=== PATIENT | female | born 1940 | race Caucasian/White ===

== ENCOUNTER 2022-10-30 22:16 | Observation (INO) | payer MEDICARE, OTHER ==
[2022-10-30] MEDS ORDERED: SODIUM CHLORIDE 0.9% 500 ML 500 ML IV STA (22:46)
--- NOTE | 2022-10-30 22:51 | ED ---
General Adult HPI - General Chief complaint: Syncope Stated complaint: Syncope Time Seen by Provider: 10/30/22 22:36 Source: patient, EMS, RN notes reviewed, old records reviewed Mode of arrival: EMS Limitations: no limitations - History of Present Illness Initial comments: This is a pleasant nontoxic-appearing 82-year-old female, alert and oriented, th at presents from [place] with complaints of a syncopal episode daily for the past 3 days. Patient states that when she gets up to walk she becomes dizzy and has a near syncopal episode. Usually occurs in the afternoon or early evening. States does not loose consciousness. States her daughter took her to [place] yesterday to be cared for because of her symptoms and yet it continues to happen . She states that she also lost her 2 weeks ago to a heart attack. She has had decreased appetite and has not been eating well since. She believes her symptoms are from dehydration. States that her mouth is very dry. She denies any chest pain or difficulty in breathing. No fevers. No abdominal pain. No nausea vomiting or diarrhea. No dysuria. She does have a history of COPD, is al so 1/2 pack-a-day smoker, with hypertension and hyperlipidemia. -: days(s) (3) Severity scale (1-10): 0 Associated Symptoms: loss of appetite Treatments Prior to Arrival: none - Related Data Allergies Allergy/AdvReac Type Severity Reaction Status Date / Time Fish Containing Products Allergy Swelling Verified 10/30/22 22:35 [Fish] Review of Systems ROS Statement: Those systems with pertinent positive or pertinent negative responses have been documented in the HPI. ROS Other: All systems not noted in ROS Statement are negative. Past Medical History Past Medical History: COPD, Hyperlipidemia, Hypertension, Osteoarthritis (OA), Pneumonia, Syncope Additional Past Medical History / Comment(s): iron deficiency anemia, pulmonary fibrosis, diverticulosis History of Any Multi-Drug Resistant Organisms: None Reported Past Surgical History: Back Surgery, Tonsillectomy, Tubal Ligation Past Psychological History: Anxiety, Depression Smoking Status: Current every day smoker Past Alcohol Use History: Occasional Past Drug Use History: Marijuana General Exam Limitations: no limitations General appearance: alert, in no apparent distress Head exam: Present: atraumatic, normocephalic, normal inspection Eye exam: Present: normal appearance. Absent: scleral icterus, conjunctival injection, periorbital swelling ENT exam: Present: mucous membranes dry Neck exam: Present: full ROM. Absent: tenderness, meningismus Respiratory exam: Present: normal lung sounds bilaterally. Absent: respiratory distress, accessory muscle use Cardiovascular Exam: Present: regular rate GI/Abdominal exam: Present: soft. Absent: distended, tenderness, guarding, rebound, rigid Extremities exam: Present: normal capillary refill. Absent: tenderness, pedal edema, calf tenderness Back exam: Absent: tenderness, CVA tenderness (R), CVA tenderness (L), paraspinal tenderness, vertebral tenderness, rash noted Neurological exam: Present: alert, oriented X3 Expanded Patient oriented to: Present: person, place, time Speech: Present: fluid speech Cranial nerves: EOM's Intact: Normal, Gag Reflex: Normal, Tongue Deviation: Normal Motor strength exam: RUE: 5, LUE: 5, RLE: 5, LLE: 5 Eye Response: (4) open spontaneously Motor Response: (6) obeys commands Verbal Response: (5) oriented [place] Total: 15 Psychiatric exam: Present: normal affect, normal mood Skin exam: Present: warm, dry, normal color. Absent: cyanosis, diaphoretic, petechiae, pallor Course Vital Signs 10/30/22 22:30 Temperature 98.8 F Pulse Rate 86 Respiratory 16 Rate Blood Pressure 148/83 O2 Sat by Pulse 99 Oximetry EKG Findings - EKG Results: EKG: sinus rhythm (EKG shows sinus rhythm with a ventricular rate of 89, PA interval 0.134, QRS 0.85, QTC 0.405; normal axis) Medical Decision Making - Medical Decision Making Denies any chest pain or difficulty in breathing. No fevers. No nausea vomiting or diarrhea. No abdominal pain. States last to a heart attack 3 weeks ago. He has not been eating or drinking very much. He has had a near syncopal episodes daily for the past 3 days. Is currently residing at [facility]. EKG shows sinus rhythm with a ventricular rate of 89, PA interval 0.134, QRS 0.85, QTC 0.405; normal axis. Occasional PVCs. No old ekg to compare. NO EVIDENCE OF LEUKOCYTOSIS. HEMOGLOBIN AND HEMATOCRIT ARE 9.9 AND 27.1 RE SPECTIVELY. TROPONIN -0.012. URINALYSIS SHOWS LEUKOCYTE ESTERASE WITH 14 WHITE BLOOD CELLS AND RARE BACTERIA. NO NITRITES. URINE WAS SENT FOR CULTURES PATIENT DENIES ANY DYSURIA. Chest x-ray interpreted by me shows no focal consolidation, trachea is midline, normal size. Radiologist interpretation COPD changes, no acute cardiopulmonary disease or process. Due to patient's frequent near syncopal episodes, she will be placed in observation with cardiology consult. I did discuss this case with Dr. Rowland who is agreeable. Patient is also agreeable to admission stating she needs to know why this keeps happening. Case discussed with Dr. Sanchez Patient has history of COPD, hyperlipidemia, hypertension, osteoarthritis,, pulmonary fibrosis, anxiety, depression, daily smoker Was pt. sent in by a medical professional or institution (, PA, FOOD BROKER, urgent care, hospital, or care home...) When possible be specific @ -[facility] nursing facility Did you speak to anyone other than the patient for history (EMS, parent, family, police, friend...)? What history was obtained from this source @ -No Did you review nursing and triage notes (agree or disagree)? Why? @ -I reviewed and agree with nursing and triage notes Were old charts reviewed (outside hosp., previous admission, EMS record, old EKG, old radiological studies, urgent care reports/EKG's, care home records)? Report findings @ -No old charts were reviewed Differential Diagnosis (chest pain, altered mental status, abdominal pain women, abdominal pain men, vaginal bleeding, weakness, fever, dyspnea, syncope, headache, dizziness, GI bleed, back pain, seizure, CVA, palpatations, mental health, musculoskeletal)? @ -Differential Syncope: Valvular disease, hypertrophic cardiomyopathy, pulmonary embolism, tamponade, tachycardia, bradycardia, CT, hypovolemia, hemorrhage, dissection, anemia, intracranial hemorrhage, seizure, hypoglycemia, carbon monoxide poisoning, this is not meant to be an all-inclusive list. EKG interpreted by me (3pts min.). @ -As above X-rays interpreted by me (1pt min.). @ -Yes as above CT interpreted by me (1pt min.). @ -None done U/S interpreted by me (1pt. min.). @ -None done What testing was considered but not performed or refused? (CT, X-rays, U/S, labs)? Why? @ -None What meds were considered but not given or refused? Why? @ -None Did you discuss the management of the patient with other professionals (professionals i.e. , PA, FOOD BROKER, lab, RT, psych nurse, social sciences professor, soap slabber, teacher, correction officer, case advocate)? Give summary @ -No Was smoking cessation discussed for >3mins.? @ -Yes Was critical care preformed (if so, how long)? @ -No Were there social determinants of health that impacted care today? How? (Homelessness, low income, unemployed, alcoholism, drug addiction, transportation, low edu. Level, literacy, decrease access to med. care, senior living, rehab)? @ -No Was there de-escalation of care discussed even if they declined (Discuss DNR or withdrawal of care, Hospice)? DNR status @ -No What co-morbidities impacted this encounter? (DM, HTN, Smoking, COPD, CAD, Cancer, CVA, ARF, Chemo, Hep., AIDS, mental health diagnosis, sleep apnea, morbi d obesity)? @ -Smoking, COPD, hypertension, hyperlipidemia Was patient admitted / discharged? Hospital course, mention meds given and route, prescriptions, significant lab abnormalities, going to OR and other pertinent info. @ -Admitted Undiagnosed new problem with uncertain prognosis? @ -No Drug Therapy requiring intensive monitoring for toxicity (Heparin, Nitro, Insulin, Cardizem)? @ -No Were any procedures done? @ -No Diagnosis/symptom? @ -near Syncope Acute, or Chronic, or Acute on Chronic? @ -Acute Uncomplicated (without systemic symptoms) or Complicated (systemic symptoms)? @ -Uncomplicated Side effects of treatment? @ -No Exacerbation, Progression, or Severe Exacerbation? @ -No Poses a threat to life or bodily function? How? (Chest pain, USA, CT, pneumonia, PE, COPD, DKA, ARF, appy, cholecystitis, CVA, Diverticulitis, Homicidal, Suicidal, threat to staff... and all critical care pts) @ -No - Lab Data Result diagrams: 10/30/22 22:48 10/30/22 22:48 Lab Results 10/30/22 10/30/22 10/30/22 Range/Units 22:48 22:48 22:48 WBC 7.1 (3.8-10.6) k/uL RBC 3.17 L (3.80-5.40) m/uL Hgb 9.9 L (11.4-16.0) gm/dL Hct 27.1 L (34.0-46.0) % MCV 85.6 (80.0-100.0) fL MCH 31.3 (25.0-35.0) pg MCHC 36.5 (31.0-37.0) g/dL RDW 13.6 (11.5-15.5) % Plt Count 247 (150-450) k/uL MPV 8.5 Neutrophils % 53 % Lymphocytes % 37 % Monocytes % 6 % Eosinophils % 1 % Basophils % 0 % Neutrophils # 3.8 (1.3-7.7) k/uL Lymphocytes # 2.6 (1.0-4.8) k/uL Monocytes # 0.4 (0-1.0) k/uL Eosinophils # 0.1 (0-0.7) k/uL Basophils # 0.0 (0-0.2) k/uL PT 10.2 (9.0-12.0) sec INR 1.0 (<1.2) APTT 19.9 L (22.0-30.0) sec Sodium 139 (137-145) mmol/L Potassium 4.3 (3.5-5.1) mmol/L Chloride 108 H (98-107) mmol/L Carbon Dioxide 23 (22-30) mmol/L Anion Gap 8 mmol/L BUN 21 H (7-17) mg/dL Creatinine 0.86 (0.52-1.04) mg/dL Est GFR (CKD-EPI)AfAm 74 (>60 ml/min/1.73 sqM) Est GFR (CKD-EPI)NonAf 65 (>60 ml/min/1.73 sqM) Glucose 146 H (74-99) mg/dL Calcium 9.0 (8.4-10.2) mg/dL Magnesium 1.9 (1.6-2.3) mg/dL Total Bilirubin 0.4 (0.2-1.3) mg/dL AST 27 (14-36) U/L ALT 31 (4-34) U/L Alkaline Phosphatase 101 (38-126) U/L Troponin I (0.000-0.034) ng/mL Total Protein 7.0 (6.3-8.2) g/dL Albumin 3.8 (3.5-5.0) g/dL Urine Color Urine Appearance (Clear) Urine pH (5.0-8.0) Ur Specific [place] (1.001-1.035) Urine Protein (Negative) Urine Glucose (UA) (Negative) Urine Ketones (Negative) Urine Blood (Negative) Urine Nitrite (Negative) Urine Bilirubin (Negative) Urine Urobilinogen (<2.0) mg/dL Ur Leukocyte Esterase (Negative) Urine RBC (0-5) /hpf Urine WBC (0-5) /hpf Ur Squamous Epith Cells (0-4) /hpf Urine Bacteria (None) /hpf 10/30/22 10/30/22 Range/Units 22:48 23:04 WBC (3.8-10.6) k/uL RBC (3.80-5.40) m/uL Hgb (11.4-16.0) gm/dL Hct (34.0-46.0) % MCV (80.0-100.0) fL MCH (25.0-35.0) pg MCHC (31.0-37.0) g/dL RDW (11.5-15.5) % Plt Count (150-450) k/uL MPV Neutrophils % % Lymphocytes % % Monocytes % % Eosinophils % % Basophils % % Neutrophils # (1.3-7.7) k/uL Lymphocytes # (1.0-4.8) k/uL Monocytes # (0-1.0) k/uL Eosinophils # (0-0.7) k/uL Basophils # (0-0.2) k/uL PT (9.0-12.0) sec INR (<1.2) APTT (22.0-30.0) sec Sodium (137-145) mmol/L Potassium (3.5-5.1) mmol/L Chloride (98-107) mmol/L Carbon Dioxide (22-30) mmol/L Anion Gap mmol/L BUN (7-17) mg/dL Creatinine (0.52-1.04) mg/dL Est GFR (CKD-EPI)AfAm (>60 ml/min/1.73 sqM) Est GFR (CKD-EPI)NonAf (>60 ml/min/1.73 sqM) Glucose (74-99) mg/dL Calcium (8.4-10.2) mg/dL Magnesium (1.6-2.3) mg/dL Total Bilirubin (0.2-1.3) mg/dL AST (14-36) U/L ALT (4-34) U/L Alkaline Phosphatase (38-126) U/L Troponin I <0.012 (0.000-0.034) ng/mL Total Protein (6.3-8.2) g/dL Albumin (3.5-5.0) g/dL Urine Color Light Yellow Urine Appearance Clear (Clear) Urine pH 6.0 (5.0-8.0) Ur Specific [place] 1.007 (1.001-1.035) Urine Protein Negative (Negative) Urine Glucose (UA) Negative (Negative) Urine Ketones Negative (Negative) Urine Blood Negative (Negative) Urine Nitrite Negative (Negative) Urine Bilirubin Negative (Negative) Urine Urobilinogen <2.0 (<2.0) mg/dL Ur Leukocyte Esterase Moderate H (Negative) Urine RBC <1 (0-5) /hpf Urine WBC 14 H (0-5) /hpf Ur Squamous Epith Cells 1 (0-4) /hpf Urine Bacteria Rare H (None) /hpf Disposition Clinical Impression: Syncope Disposition: ADMITTED IP TO THIS [facility] Decision Date: 10/31/22 Decision Time: 00:12
[2022-10-30 23:01] LABS: Basophils % (A) 0 %; Eosinophils # (A) 0.1 k/uL (0-0.7); Eosinophils % (A) 1 %; HCT 27.1 % (34.0-46.0); HGB 9.9 gm/dL (11.4-16.0); Lymphocytes # (A) 2.6 k/uL (1.0-4.8); Lymphocytes % (A) 37 %; MCH 31.3 pg (25.0-35.0); MCHC 36.5 g/dL (31.0-37.0); MCV 85.6 fL (80.0-100.0); Mean Platelet Volume 8.5; Monocytes # (A) 0.4 k/uL (0-1.0); Monocytes % (A) 6 %; Neutrophils # (A) 3.8 k/uL (1.3-7.7); Neutrophils % (A) 53 %; Platelet Count 247 k/uL (150-450); RBC 3.17 m/uL (3.80-5.40); RDW 13.6 % (11.5-15.5); WBC 7.1 k/uL (3.8-10.6)
--- NOTE | 2022-10-30 23:10 | XR ---
EXAMINATION TYPE: XR chest 2V DATE OF EXAM: 10/30/2022 10:56 PM COMPARISON: None TECHNIQUE: XR chest 2V Frontal and lateral views of the chest. CLINICAL INDICATION:Female, 82 years old with history of syncope; FINDINGS: Lungs/Pleura: There is flattening of the diaphragm with increased lucency of the lungs. No evidence o f pneumothorax, pleural effusion or focal consolidation. Pulmonary vascularity: Unremarkable. Heart/mediastinum: Cardiomediastinal silhouette is unremarkable. Atherosclerotic calcifications are seen in the aorta. Musculoskeletal: No acute osseous pathology. There is fixation hardware in the lower cervical spine. Other findings: None IMPRESSION: 1. No acute cardiopulmonary disease process. 2. COPD changes.
[2022-10-30 23:11] LABS: Potassium 4.3 mmol/L (3.5-5.1)
[2022-10-30 23:12] LABS: Albumin 3.8 g/dL (3.5-5.0); Magnesium 1.9 mg/dL (1.6-2.3); Total Bilirubin 0.4 mg/dL (0.2-1.3)
[2022-10-30 23:36] LABS: Prothrombin Time 10.2 sec (9.0-12.0)
[2022-10-30 23:40] LABS: Appearance,Urine Clear (Clear); Bacteria,Urine Rare /hpf; Bilirubin,Urine Negative (Negative); Blood,Urine Negative (Negative); Color,Urine Light Yellow; Glucose,Urine (UA) Negative (Negative); Ketones,Urine Negative (Negative); Leukocyte Esterase,Urine Moderate (Negative); Nitrite,Urine Negative (Negative); Protein,Urine Negative (Negative); RBC,Urine <1 /hpf (0-5); Specific Gravity,Urine 1.007 (1.001-1.035); Squamous Epithelial Cell,Urine 1 /hpf (0-4); Urobilinogen,Urine <2.0 mg/dL (<2.0); WBC,Urine 14 /hpf (0-5)
[2022-10-30 23:50] LABS: Partial Thromboplastin Time 19.9 sec (22.0-30.0)
[2022-10-31] MEDS ORDERED: ACETAMINOPHEN TAB 325 MG TAB PO PRN (00:13)
[2022-10-31] MEDS ORDERED: NALOXONE 0.4 MG/ML 1 ML VIAL IV PRN (00:13)
--- NOTE | 2022-10-31 02:21 | CT ---
EXAM: CT Angiography Chest With Intravenous Contrast CLINICAL HISTORY: ITS.REASON CT Reason: elevated dimer TECHNIQUE: Axial computed tomographic angiography images of the chest with intravenous contrast. CTDI is 8.7 mGy and DLP is 176 mGy-cm. This CT exam was performed using one or more of the following dose reduction techniques: automated exposure control, adjustment of the mA and/or kV according to patient size, and/or use of iterative reconstruction technique. MIP reconstructed images were created and reviewed. COMPARISON: No previous studies. FINDINGS: Pulmonary arteries: Peripheral branches the pulmonary arteries are unremarkable. No central pulmonary emboli. Aorta: Atherosclerotic disease of the thoracic aorta. No thoracic aortic aneurysm. Lungs: 1.9 cm indeterminate nodule left lobe of the thyroid gland. Mild to moderate COPD. The airway is normal. Scarring and subsegmental atelectasis at the lung bases. Pleural space: Unremarkable. No pneumothorax. No pleural effusions. Heart: 0.3 cm pericardial effusion. Heart is normal in size. No evidence of RV dysfunction. Bones/joints: Moderate degenerative disc disease of the thoracic spine and kyphosis. Osteopenia. Post surgical changes the lower cervical spine. No acute fracture. No dislocation. Soft tissues: Unremarkable. Lymph nodes: Unremarkable. No enlarged lymph nodes. Liver: Fatty infiltration of the liver. IMPRESSION: 1. No central or peripheral pulmonary emboli. 2. COPD. Atherosclerotic disease of the thoracic aorta.
--- NOTE | 2022-10-31 07:31 | US ---
EXAMINATION TYPE: US venous doppler duplex LE DATE OF EXAM: 10/31/2022 7:16 AM COMPARISON: NONE CLINICAL HISTORY: elevated dimer. No redness or swelling. Syncope. SIDE PERFORMED: Bilateral TECHNIQUE: The lower extremity deep venous system is examined utilizing real time linear array sonog wesley with graded compression, doppler sonography and color-flow sonography. VESSELS IMAGED: Common Femoral Vein Deep Femoral Vein Greater Saphenous Vein * Femoral Vein Popliteal Vein Small Saphenous Vein * Proximal Calf Veins (* superficial vessels) Right Leg: Negative for DVT Left Leg: Negative for DVT IMPRESSION: 1. Bilateral lower extremity ultrasound negative for deep venous thrombosis.
--- NOTE | 2022-10-31 10:52 | CA ---
Transthoracic Echo Report Name: Isidra Charles Age: 82 Gender: F : 1940 Exam Date: 10/31/2022 07:47 Exam Location: [facility] Ht (in): 61 Wt (lb): 106 Ordering Physician: Corwin Melissa Attending/Referring Phys: Departmental Secretary Mana Hernandez RDCS Procedure CPT: Indications: Syncope Cardiac Hx: Technical Quality: Fair Contrast 1: Total Dose (mL): Contrast 2: Total Dose (mL): MEASUREMENTS (Male / Female) Normal Values 2D ECHO LV Diastolic Diameter PLAX 2.8 cm 4.2 - 5.9 / 3.9 - 5.3 cm LV Systolic Diameter PLAX 1.9 cm IVS Diastolic Thickness 1.6 cm 0.6 - 1.0 / 0.6 - 0.9 cm LVPW Diastolic Thickness 1.7 cm 0.6 - 1.0 / 0.6 - 0.9 cm LV Relative Wall Thickness 1.2 RV Internal Dim ED PLAX 2.7 cm LA Volume 41.8 cm??? 18 - 58 / 22 - 52 cm??? M-MODE Aortic Root Diameter MM 3.4 cm AV Cusp Separation MM 1.6 cm DOPPLER AV Peak Velocity 140.9 cm/s AV Peak Gradient 7.9 mmHg AV Mean Velocity 108.5 cm/s AV Mean Gradient 5.0 mmHg AV Velocity Time Integral 33.5 cm LVOT Peak Velocity 133.5 cm/s LVOT Peak Gradient 7.1 mmHg LVOT Velocity Time Integral 34.2 cm MV Peak Velocity 159.3 cm/s MV Peak Gradient 10.2 mmHg MV Mean Velocity 105.0 cm/s MV Mean Gradient 4.8 mmHg MV Velocity Time Integral 30.8 cm MV Area PHT 3.1 cm??? Mitral E Point Velocity 118.2 cm/s Mitral A Point Velocity 144.2 cm/s Mitral E to A Ratio 0.8 MV Deceleration Time 248.3 ms MV E' Velocity 5.1 cm/s Mitral E to MV E' Ratio 23.1 TR Peak Velocity 301.5 cm/s TR Peak Gradient 36.4 mmHg Right Ventricular Systolic Press 40.5 mmHg FINDINGS Left Ventricle Moderately increased left ventricular wall thickness. Normal left ventricular systolic function with no obvious regional wall motion abnormalities. Left ventricular cavity size normal. Left ventricular ejection fraction is estimated at 55-60 %. Normal left ventricular diastolic filling pattern. Right Ventricle Normal right ventricular size and function. Mild pulmonary hypertension. Right ventricular systolic pressure estimated at 41mm hg. Right Atrium Normal right atrial size. Left Atrium Normal left atrial size. Mitral Valve Moderate mitral annular calcification. No mitral stenosis. Trace mitral regurgitation. Aortic Valve No aortic valve stenosis or regurgitation. Aortic valve sclerosis. Tricuspid Valve Structurally normal tricuspid valve. Mild tricuspid regurgitation. Pulmonic Valve Trace pulmonic regurgitation. Pericardium No pericardial effusion. Echo free space anterior to the right ventricle likely represents a fat pad. Aorta Normal size aortic root and proximal ascending aorta. CONCLUSIONS Normal LV size and systolic function with mild pulmonary hypertension. Mild mitral and tricuspid regurgitation. No pericardial effusion Previewed by: Dr. Blake Peterson MD (Electronically Signed) Final Date: 31 October 2022 10:51
[2022-10-31] MEDS: NICOTINE 14MG/24HR PATCH TRANSDERM SCH ×2 (10:55→10:57)
[2022-10-31] MEDS: SODIUM CHLORIDE 0.9% 1,000 ML IV SCH ×2 (10:55→20:04)
[2022-10-31] MEDS: SACUBITRIL/VALSARTAN 24 MG-26 MG TABLET PO SCH ×2 (11:13→20:03)
--- NOTE | 2022-10-31 13:18 | P.CRDCN ---
History of Present Illness Consult date: 10/31/22 Consult reason: sycope History of present illness: History of present illness: This is an 82-year-old female with past medical history of COPD, chronic bronchitis, hypertension and hyperlipidemia, tobacco use. Patient states that she does not follow with doctors. She had one visit with Dr. Gallagher in 2013 and had no follow-up visits. We have been asked to evaluate the patient for syncope. Patient states that she was playing cards and all of a sudden she passed out. She has no idea how long she had been out. Patient denies having any loss of bowel or bladder control. She has no appetite with weight loss. Poor historian. EKG sinus rhythm with PACs Chest x-ray reveals no acute cardiac problem in process CTA negative for pulmonary embolism. COPD. Atherosclerotic disease of the thoracic aorta. Venous Doppler of the lower extremity is negative for DVT. WBC 7.1, hemoglobin 9.9, platelet count 247. INR 1. D-dimer 2.93. Sodium 139, potassium 4.3, BUN 21 creatinine 0.86. Blood sugar 146. Troponin negative 1. Liver function tests are normal. Magnesium 1.9. Urinalysis leukoesterase moderate. Influenza A, influenza B, RSV and Covid 1900. Home cardiac medications: None Cardiac catheterization to thousand 14: EF 0.75, normal left system, RCA 20-30% Review Of Systems: At the time of my evaluation: Constitutional: No fever, no chills. No weakness, fatigue or lethargy. EENT: No headache. No dizziness. Lungs: No shortness of breath, cough, no sputum production. No wheezing. Cardiovascular: No chest pain, no lower extremity edema. No palpitations. No paroxysmal nocturnal dyspnea. No orthopnea. No lightheadedness or dizziness. Reports syncopal episodes. Abdominal: No abdominal pain. No nausea, vomiting. No diarrhea. No constipation. No bloody or tarry stools. Reports decreased appetite and weight loss Genitourinary: No dysuria.. No urinary retention. Musculoskeletal: No myalgias. No muscle weakness, no frequent falls. No back pain. No neck pain. Integumentary: No wounds. No rash. No unusual bruising. Neurologic: No aphasia. No facial droop. No change in mentation. No head injury. No headache. Physical examination: Gen: This is an 82-year-old female. She is resting and appears to be comfortable and in no acute distress. VS: reviewed HEENT: Head is atraumatic, normocephalic. Pupils equal, round. Sclerae is anicteric. NECK: Supple. No JVD. . LUNGS: Clear to auscultation. No wheezes or rhonchi. No intercostal retractions. HEART: Regular rate and rhythm. No murmur. ABDOMEN: Soft No tenderness. EXTREMITIES: No pedal edema. No calf tenderness. NEUROLOGICAL: Patient is awake, alert and oriented x3. Assessment: Syncopal episode of unclear etiology, possible vasovagal, rule out arrhythmia Dehydration COPD History of hypertension, hyperlipidemia Tobacco use and dependence Plan: Obtain orthostatic vital signs Continue telemetry monitoring for arrhythmias Start patient on IV fluids or 0.9 normal saline at 75 mL per hour Obtain TSH and free T4 Obtain 2-D echocardiogram and Doppler study to assess cardiac structure and function Further recommendations to follow based upon clinical course Thank you kindly for this consultation. Nurse practitioner note has been reviewed, I agree with documented findings and plan of care. Patient was seen and examined. Past Medical History Past Medical History: COPD, Hyperlipidemia, Hypertension, Osteoarthritis (OA), Pneumonia, Syncope Additional Past Medical History / Comment(s): iron deficiency anemia, pulmonary fibrosis, diverticulosis History of Any Multi-Drug Resistant Organisms: None Reported Past Surgical History: Back Surgery, Tonsillectomy, Tubal Ligation Past Psychological History: Anxiety, Depression Smoking Status: Current every day smoker Past Alcohol Use History: Occasional Past Drug Use History: Marijuana Medications and Allergies Home Medications Medication Instructions Recorded Confirmed Type Escitalopram Oxalate [Lexapro] 10 mg PO DAILY@0800 10/31/22 10/31/22 History Ibuprofen [Motrin] 800 mg PO Q8H PRN 10/31/22 10/31/22 History Nicotine 14Mg/24Hr Patch [Habitrol 1 patch TRANSDERM DAILY@00 10/31/22 10/31/22 History 14Mg/24Hr Patch] QUEtiapine [SEROquel] 25 mg PO HS@199910/31/22 10/31/22 History Sacubitril/Valsartan [Entresto 24 1 tab PO BID@08,199910/31/22 10/31/22 History mg-26 mg Tablet] Allergies Allergy/AdvReac Type Severity Reaction Status Date / Time Fish Containing Products Allergy Swelling Verified 10/31/22 06:34 [Fish] shellfish derived [Shellfish] Allergy Unknown Verified 10/31/22 06:34 Physical Exam Vitals: Vital Signs Temp Pulse Resp BP BP BP BP 10/31/22 10:08 18 118/58 129/65 133/60 10/31/22 10:00 79 18 128/67 10/31/22 08:00 10/31/22 07:28 78 18 114/62 10/31/22 06:10 98.4 F 81 18 112/59 10/30/22 22:30 98.8 F 86 16 148/83 Pulse Ox FiO2 10/31/22 10:08 97 10/31/22 10:00 98 10/31/22 08:00 97 21 10/31/22 07:28 99 10/31/22 06:10 97 10/30/22 22:30 99 Intake and Output 10/30/22 10/31/22 10/31/22 22:59 06:59 14:59 Other: Weight 48.081 kg Results 10/30/22 22:48 10/30/22 22:48 Cardiac Enzymes 10/30/22 10/30/22 Range/Units 22:48 22:48 AST 27 (14-36) U/L Troponin I <0.012 (0.000-0.034) ng/mL Coagulation 10/30/22 Range/Units 22:48 PT 10.2 (9.0-12.0) sec APTT 19.9 L (22.0-30.0) sec CBC 10/30/22 Range/Units 22:48 WBC 7.1 (3.8-10.6) k/uL RBC 3.17 L (3.80-5.40) m/uL Hgb 9.9 L (11.4-16.0) gm/dL Hct 27.1 L (34.0-46.0) % Plt Count 247 (150-450) k/uL Comprehensive Metabolic Panel 10/30/22 Range/Units 22:48 Sodium 139 (137-145) mmol/L Potassium 4.3 (3.5-5.1) mmol/L Chloride 108 H (98-107) mmol/L Carbon Dioxide 23 (22-30) mmol/L BUN 21 H (7-17) mg/dL Creatinine 0.86 (0.52-1.04) mg/dL Glucose 146 H (74-99) mg/dL Calcium 9.0 (8.4-10.2) mg/dL AST 27 (14-36) U/L ALT 31 (4-34) U/L Alkaline Phosphatase 101 (38-126) U/L Total Protein 7.0 (6.3-8.2) g/dL Albumin 3.8 (3.5-5.0) g/dL Current Medications Generic Name Dose Route Start Last Admin Trade Name Freq PRN Reason Stop Dose Admin Acetaminophen 650 mg 10/31/22 00:13 Acetaminophen Tab 325 Mg Tab PO Q6HR PRN Mild Pain or Fever > 100.5 Escitalopram Oxalate 10 mg 11/01/22 08:00 Escitalopram 10 Mg Tab PO DAILY@0800 ALEXANDRA Sodium Chloride 1,000 mls @ 75 mls/hr 10/31/22 09:30 10/31/22 10:55 Saline 0.9% IV 75 mls/hr .[id number] ALEXANDRA Administration Naloxone HCl 0.2 mg 10/31/22 00:13 Naloxone 0.4 Mg/Ml 1 Ml Vial IV Q2M PRN Opioid Reversal Nicotine 1 patch 10/31/22 09:00 10/31/22 10:57 Nicotine 14mg/24hr Patch TRANSDERM Not Given DAILY ALEXANDRA Quetiapine Fumarate 25 mg 10/31/22 20:00 Quetiapine 25 Mg Tab PO HS@2000 ALEXANDRA Sacubitril/Valsartan 1 each 10/31/22 09:00 10/31/22 11:13 Sacubitril/Valsartan 24 Mg-26 Mg Tablet PO 1 each BID ALEXANDRA Administration Intake and Output 10/30/22 10/31/22 10/31/22 22:59 06:59 14:59 Other: Weight 48.081 kg 10/30/22 22:48 10/30/22 22:48
--- NOTE | 2022-10-31 13:51 | P.HPIM ---
History of Present Illness H&P Date: 10/31/22 Chief Complaint: Syncope This is a pleasant 82-year-old female resident of [facility] with past medical history of dementia, COPD, hyperlipidemia, hypertension, osteoarthritis, pneumonia, syncope, anxiety, depression, nicotine dependence, iron deficiency anemia, pulmonary fibrosis, diverticulosis, occasional marijuana and multiple other medical issues use brought into the ER with complaints of syncope daily 3 days per ER record. Patient is a vague/poor historian, states symptoms started occurring just under a week ago and and never had prior occurrences. The first time it occurred patient states, she ""was sitting, watching TV in the evening, felt weird with some blurred vision", denied weakness and then passed out. Denies incontinence of urine or bowel. Reports her recently , she has not been sleeping, her mind is constantly racing, recently started on antidepressant. Upon patient's home medication review, noticed patient is on Entresto, patient denies that she follows with a finance executive, denies leg swelling, denies shortness of breath. Denies nausea vomiting or abdominal pain. Denies chest pain, palpitations. Denies history of coronary heart disease, [place] or cardiac stents. Afebrile, normal WBC. Hemoglobin 9.9, platelets 247, INR 1, d-dimer 2.93. Sodium 139, potassium 4.3, bicarb 23, BUN 21, creatinine 0.86, glucose 146, magnesium 1.9 , newly reporting 14 WBC's, moderate leukocytes, negative nitrates. Influenza A & B , RSV , clayton virus not detected . EKG sinus rhythm with occasional supraventricular premature complexes, chest x-ray reporting non acute, COPD changes.CTA reported negative PE, 1.9 cm indeterminate nodule left lobe of the thyroid,venous Doppler of lower extremity negative for DVT.Patient had not been seen by PCP since 2019; then in August 2022, daughter brought her in for ECF placement paperwork secondary to worsening dementia, unable to manage her checkbook, involved [employer]. Review of Systems ROS Statement: Those systems with pertinent positive or pertinent negative responses have been documented in the HPI. ROS Other: All systems not noted in ROS Statement are negative. Past Medical History Past Medical History: COPD, Hyperlipidemia, Hypertension, Osteoarthritis (OA), Pneumonia, Syncope Additional Past Medical History / Comment(s): iron deficiency anemia, pulmonary fibrosis, diverticulosis History of Any Multi-Drug Resistant Organisms: None Reported Past Surgical History: Back Surgery, Tonsillectomy, Tubal Ligation Past Psychological History: Anxiety, Depression Smoking Status: Current every day smoker Past Alcohol Use History: Occasional Past Drug Use History: Marijuana Medications and Allergies Home Medications Medication Instructions Recorded Confirmed Type Escitalopram Oxalate [Lexapro] 10 mg PO DAILY@00 10/31/22 10/31/22 History Ibuprofen [Motrin] 800 mg PO Q8H PRN 10/31/22 10/31/22 History Nicotine 14Mg/24Hr Patch [Habitrol 1 patch TRANSDERM DAILY@79910/31/22 10/31/22 History 14Mg/24Hr Patch] QUEtiapine [SEROquel] 25 mg PO HS@199910/31/22 10/31/22 History Sacubitril/Valsartan [Entresto 24 1 tab PO BID@08,199910/31/22 10/31/22 History mg-26 mg Tablet] Allergies Allergy/AdvReac Type Severity Reaction Status Date / Time Fish Containing Products Allergy Swelling Verified 10/31/22 06:34 [Fish] shellfish derived [Shellfish] Allergy Unknown Verified 10/31/22 06:34 Physical Exam Vitals: Vital Signs Temp Pulse Resp BP BP BP BP 10/31/22 10:08 18 118/58 129/65 133/60 10/31/22 10:00 79 18 128/67 10/31/22 08:00 10/31/22 07:28 78 18 114/62 10/31/22 06:10 98.4 F 81 18 112/59 10/30/22 22:30 98.8 F 86 16 148/83 Pulse Ox FiO2 10/31/22 10:08 97 10/31/22 10:00 98 10/31/22 08:00 97 21 10/31/22 07:28 99 10/31/22 06:10 97 10/30/22 22:30 99 Intake and Output 10/30/22 10/31/22 10/31/22 22:59 06:59 14:59 Other: Weight 48.081 kg PHYSICAL EXAM: VITAL SIGNS: As above GENERAL: Sitting up on stretcher, no acute distress, pleasant, cooperative,converses fluently HEENT: Conjunctivae normal. eyes normal. NECK: Supple, No JVD. No thyroid enlargement. No LNs CARDIOVASCULAR: S1, S2 regular.No murmur RESPIRATION: Breath sounds diminished in the bases. No rhonchi or crackles. No bronchial breathing. ABDOMEN: Soft, nontender . No guarding. no masses palpable. No ascites, No hepatosplenomegaly.Bowel sounds heard. LEGS: No edema. no swelling PSYCHIATRY: Alert and oriented X2, mood and affect normal. NERVOUS SYSTEM: Cranial N 2-12 grossly normal.Strength and sensation grossly intact.. Skin: Warm and dry, no rash Results CBC & Chem 7: 10/30/22 22:48 10/30/22 22:48 Labs: Abnormal Lab Results - Last 24 Hours (Table) 10/30/22 10/30/22 10/30/22 Range/Units 22:48 22:48 22:48 RBC 3.17 L (3.80-5.40) m/uL Hgb 9.9 L (11.4-16.0) gm/dL Hct 27.1 L (34.0-46.0) % APTT 19.9 L (22.0-30.0) sec D-Dimer (<0.60) mg/L FEU Chloride 108 H (98-107) mmol/L BUN 21 H (7-17) mg/dL Glucose 146 H (74-99) mg/dL Ur Leukocyte Esterase (Negative) Urine WBC (0-5) /hpf Urine Bacteria (None) /hpf 10/30/22 10/30/22 Range/Units 22:48 23:04 RBC (3.80-5.40) m/uL Hgb (11.4-16.0) gm/dL Hct (34.0-46.0) % APTT (22.0-30.0) sec D-Dimer 2.93 H (<0.60) mg/L FEU Chloride (98-107) mmol/L BUN (7-17) mg/dL Glucose (74-99) mg/dL Ur Leukocyte Esterase Moderate H (Negative) Urine WBC 14 H (0-5) /hpf Urine Bacteria Rare H (None) /hpf Assessment and Plan Assessment: Syncope, etiology unclear, possibly medication induced in a patient recently placed on Entresto, reporting decreased water intake, possibly secondary to hypotension. [employer] liaison notified-researching Entresto further. Echo pending. Dehydration COPD 1.9 cm indeterminate nodule left lobe of the thyroid, incidental finding per CTA Hypertension Hyperlipidemia Osteoarthritis History of iron deficiency anemia Nicotine dependence Pulmonary fibrosis Diverticulosis Anxiety Depression Plan: Continue on current medication regime ,monitoring and symptomatic treatment. Maintain gentle IV fluid hydration. Echo pending. TSH/T4 pending . cardiology consult in place,rec. pending.Entresto recently prescibed-researching further. The impression and plan of care has been dictated as directed. : I performed a history and examination of this patient, discussed the same with the dictator. I agree with the dictator's note ,documented as a scribe. Any additional findings or plans will be noted.
[2022-10-31] MEDS ORDERED: QUEtiapine 25 MG TAB PO SCH (20:00)
[2022-11-01 06:53] VITALS: RESP 16
[2022-11-01] MEDS ORDERED: NICOTINE 14MG/24HR PATCH TRANSDERM SCH (08:00)
[2022-11-01] MEDS ORDERED: ESCITALOPRAM 10 MG TAB PO SCH (08:00)
[2022-11-01] MEDS: NICOTINE 14MG/24HR PATCH TRANSDERM SCH (08:57)
--- NOTE | 2022-11-01 10:23 | P.PN ---
Subjective Progress Note Date: 11/01/22 History of present illness: This is an 82-year-old female with past medical history of COPD, chronic bronc hitis, hypertension and hyperlipidemia, tobacco use. Patient states that she does not follow with doctors. She had one visit with Dr. Gallagher in 2013 and had no follow-up visits. We have been asked to evaluate the patient for syncope. Patient states that she was playing cards and all of a sudden she passed out. She has no idea how long she had been out. Patient denies having any loss of bowel or bladder control. She has no appetite with weight loss. Poor historian. EKG sinus rhythm with PACs Chest x-ray reveals no acute cardiac problem in process CTA negative for pulmonary embolism. COPD. Atherosclerotic disease of the thoracic aorta. Venous Doppler of the lower extremity is negative for DVT. WBC 7.1, hemoglobin 9.9, platelet count 247. INR 1. D-dimer 2.93. Sodium 139, potassium 4.3, BUN 21 creatinine 0.86. Blood sugar 146. Troponin negative 1. Liver function tests are normal. Magnesium 1.9. Urinalysis leukoesterase moderate. Influenza A, influenza B, RSV and Covid 1900. Home cardiac medications: None Cardiac catheterization to thousand 14: EF 0.75, normal left system, RCA 20-30% 4/4 The patient is seen today in follow-up. She's had no further episodes of sy ncope and overnight was uneventful. Heart rate is in the 70s to 80s, blood pressure 122/52. No arrhythmias were noted on telemetry. Orthostatic vital signs were negative. TSH 0.069. And free T4 normal at 1.01. Echocardiogram reveals normal LV size and systolic function with mild pulmonary hypertension. Mild mitral and tricuspid regurgitation. No pericardial effusion. Physical examination: Gen: This is an 82-year-old female. She is resting and appears to be comfortable and in no acute distress. VS: reviewed HEENT: Head is atraumatic, normocephalic. Pupils equal, round. Sclerae is anicteric. NECK: Supple. No JVD. . LUNGS: Clear to auscultation. No wheezes or rhonchi. No intercostal retractions. HEART: Regular rate and rhythm. No murmur. ABDOMEN: Soft No tenderness. EXTREMITIES: No pedal edema. NEUROLOGICAL: Patient is awake, alert and oriented x3. Assessment: Syncopal episode of unclear etiology, possible vasovagal, rule out arrhythmia Dehydration COPD History of hypertension, hyperlipidemia Tobacco use and dependence Plan: Entresto will be discontinued as patient has no systolic heart failure, start patient on losartan 50 mg tomorrow evening. Patient will need to return on or Monday of this week to have event monitor placed: 2 week event monitor for Dr. SARMAD Peterson Patient is cleared for discharge and a follow-up with Dr. SARMAD Peterson in 3 weeks. Nurse practitioner note has been reviewed, I agree with documented findings and plan of care. Patient was seen and examined. Objective - Vital Signs Vital signs: Vital Signs Temp 97.4 F L 11/01/22 06:52 Pulse 79 11/01/22 06:52 Resp 16 11/01/22 06:52 BP 122/52 11/01/22 06:52 Pulse Ox 98 11/01/22 08:05 FiO2 21 11/01/22 08:05 Intake & Output 10/31/22 11/01/22 11/01/22 18:59 06:59 18:59 Intake Total 240 Balance 240 Intake: Oral 240 Other: # Voids 1 2 - Labs CBC & Chem 7: 10/30/22 22:48 10/30/22 22:48 Labs: Abnormal Lab Results - Last 24 Hours (Table) 10/31/22 Range/Units 11:06 TSH 0.069 L (0.350-5.500) uIU/mL Microbiology - Last 24 Hours (Table) 10/30/22 23:04 Urine Culture - Preliminary Urine,Voided
--- NOTE | 2022-11-01 10:41 | P.DS ---
Providers Date of admission: 10/31/22 00:07 Expected date of discharge: 11/01/22 Attending physician: Daryl Jacobs MD Consults: 10/31/22 00:13 Consult Physician Routine Consulting Provider: Rudy Holbrook Consult Reason/Comments: syncope recurrent Do you want consulting provider notified?: Yes, Notify in am 10/31/22 18:14 Consult Physician Routine Consulting Provider: Anahy Ferraro Consult Reason/Comments: syncope Do you want consulting provider notified?: Yes Primary care physician: Fernanda Rios [facility] Course: Final Diagnoses: Syncope, etiology unclear, suspect medication induced in a patient recently placed on Entresto, reporting decreased water intake, suspect secondary to hypotension. Entresto discontinued. Echo reporting normal LV function with mild pulmonary hypertension. Dehydration, improved COPD, stable 1.9 cm indeterminate nodule left lobe of the thyroid, incidental finding per CTA, TSH 0.069/free T4 1.010, follow-up with ENT outpatient. Hypertension Hyperlipidemia Osteoarthritis History of iron deficiency anemia Nicotine dependence Pulmonary fibrosis Diverticulosis Anxiety Depression Hospital course:This is a pleasant 82-year-old female resident of [facility] with past medical history of dementia, COPD, hyperlipidemia, hypertension, osteoarthritis, pneumonia, syncope, anxiety, depression, nicotine dependence, iron deficiency anemia, pulmonary fibrosis, diverticulosis, occasional marijuana and multiple other medical issues use brought into the ER with complaints of syncope daily 3 days per ER record. Patient is a vague/poor historian, states symptoms started occurring just under a week ago and and never had prior occurrences. The first time it occurred patient states, she ""was sitting, watching TV in the evening, felt weird with some blurred vision", denied weakness and then passed out. Denies incontinence of urine or bowel. Reports her recently , she has not been sleeping, her mind is rehana daniel, recently started on antidepressant. Upon patient's home medication review, noticed patient is on Entresto, patient denies that she follows with a adult education manager, denies leg swelling, denies shortness of breath. Denies nausea vomiting or abdominal pain. Denies chest pain, palpitations. Denies history of coronary heart disease, [place] or cardiac stents. Afebrile, normal WBC. Hemoglobin 9.9, platelets 247, INR 1, d-dimer 2.93. Sodium 139, potassium 4.3, bicarb 23, BUN 21, creatinine 0.86, glucose 146, magnesium 1.9 , newly reporting 14 WBC's, moderate leukocytes, negative nitrates. Influenza A & B , RSV , clayton virus not detected . EKG sinus rhythm with occasional supraventricular premature complexes, chest x-ray reporting non acute, COPD changes.CTA reported negative PE, 1.9 cm indeterminate nodule left lobe of the thyroid,venous Doppler of lower extremity negative for DVT.Patient had not been seen by PCP since 2019; then in August 2022, daughter brought her in for ECF placement paperwork secondary to worsening dementia, unable to manage her checkbook, involved [employer]. Entresto Discontinued. Maintained on gentle IV fluid hydration. Echo reporting normal LV size and systolic function with mild pulmonary hypertension, mild mitral and tricuspid regurgitation, no pericardial effusion. TSH 0.069/free T4 1.010-in addition to incidental finding of 1.9 cm indeterminate nodule left lobe of the thyroid, follow-up with ENT outpatient. Evaluated by cardiology, recommending no Entresto; losartan for hypertension initiated, starting tomorrow for 11/02/22. Significant clinical improvement. Reports she is feeling so much better .Denies chest pain, palpitations or shortness of breath. Denies cough or congestion. Denies lightheadedness dizziness or focal deficits. Denies blurred vision. Denies headache. Reports she is ambulating, tolerating exertion well. Cleared by cardiology for discharge. Patient will be discharged to [facility] today in a stable condition with guarded prognosis. The impression and plan of care has been dictated as directed. : I performed a history and examination of this patient, discussed the same with the dictator. I agree with the dictator's note ,documented as a scribe. Any additional findings or plans will be noted. Patient Condition at Discharge: Stable Plan - Discharge Summary New Discharge Prescriptions: New Losartan [Cozaar] 50 mg PO HS #0 tab Continue Ibuprofen [Motrin] 800 mg PO Q8H PRN PRN Reason: Pain QUEtiapine [SEROquel] 25 mg PO HS@1999 Nicotine 14Mg/24Hr Patch [Habitrol] 1 patch TRANSDERM DAILY@0800 Escitalopram Oxalate [Lexapro] 10 mg PO DAILY@0800 Discontinued Sacubitril/Valsartan [Entresto 24 mg-26 mg Tablet] 1 tab PO BID@ Discharge Medication List Escitalopram Oxalate [Lexapro] 10 mg PO DAILY@79910/31/22 [History] Ibuprofen [Motrin] 800 mg PO Q8H PRN 10/31/22 [History] Nicotine 14Mg/24Hr Patch [Habitrol] 1 patch TRANSDERM DAILY@79910/31/22 [History] QUEtiapine [SEROquel] 25 mg PO HS@199910/31/22 [History] Losartan [Cozaar] 50 mg PO HS #0 tab 11/01/22 [Rx] Follow up Appointment(s)/Referral(s): Leigh Quiros DO [REFERRING] - 1-2 days Activity/Diet/Wound Care/Special Instructions: * Start Losartan Monday11/02/22
--- NOTE | 2022-11-01 11:18 | P.CNNES ---
History of Present Illness Consult date: 11/01/22 Requesting physician: Christine Joyce Reason for Consult: Syncope History of Present Illness: Patient is a 82-year-old right-handed female came to the hospital by ambulance on 10/30/2022 at 10:16 PM for recurrent syncopal spells. Patient has been drinking half a pint of tequila every day for 6-7 years. Her 3 weeks ago, and she stopped drinking alcohol. Says that she had about 6 episodes of syncopal spells. Mostly it has happened when she is sitting, watching TV, but it can also happen standing but has never happened when laying down. She usually gets a feeling of episode coming with feeling generalized weak, woozy, dizzy, and the symptoms last for a few seconds and then she passes out. If she is sitting and gets the feeling, she keel over the couch to prevent a fall. If she gets that feeding while standing, she sits down to prevent a fall. She has never bitten her tongue or loss control of urine. She believes that she is out for about 2 or 3 minutes. When she wakes up, she is fully oriented and normal. No postictal state. Patient denies any history of seizure. As per EMS flow sheet, when they arrived, nursing staff mentioned that patient appeared to have a seizure in the assisted her to the floor. Nurses could not describe her seizure like activity and states it lasted 3-4 minutes at least. Patient was alert and oriented 3 when EMS arrived. Patient stated she did not have a seizure. Patient mentioned that she was playing cards and was feeling overwhelmed as she is a new resident here and she has been stressed due to recent of her . Patient mentioned that she felt lightheaded and felt as if she was going to pass out, but states she did not pass out. Patient mentioned that her hands feels cramping. Patient denied any pain or difficulty breathing. Patient vitals at the scene was blood pressure 142/68, pulse rate 98, respirations 16 saturation 100% and blood sugar 222. Blood test shows normal WBC hemoglobin 9.9, platelets 247. PT/PTT normal, d- dimer elevated 2.93. Chem-20 is normal. Troponin is negative. TSH is decreased 0.069 with normal free T4 of 1.010. UA shows moderate leukocyte esterase. 14 WBC. Influenza, RSV and coronal virus PCR negative. EKG showed sinus rhythm with occasional supraventricular premature complexes. Chest x-ray showed no acute process. COPD changes. CTA of the chest showed no emboli. COPD. Atherosclerotic disease of the thoracic aorta. Venous Doppler of the lower extremities was negative for DVT. Patient has history of smoking 1 pack per day since age 18. She has been drinking alcohol half pint tequila every day for 6-7 years, quit 3 weeks ago after her . Denies any history of head injury. No history of seizures. She does smoke marijuana every day. No other drug use. Review of Systems Constitutional: Reports weight loss, Denies chills, Denies fever Eyes: denies blurred vision, denies pain Ears: deny: decreased hearing, ear discharge Ears, nose, mouth and throat: Denies headache, Denies sore throat Cardiovascular: Reports lightheadedness, Reports syncope, Denies chest pain, Denies shortness of breath Respiratory: Denies cough, Denies excessive sputum Gastrointestinal: Denies abdominal pain, Denies diarrhea, Denies nausea, Denies vomiting Genitourinary: Denies dysuria, Denies hematuria Musculoskeletal: Reports low back pain, Denies myalgias, Denies neck pain Integumentary: Denies pruritus, Denies rash Neurological: Reports as per HPI Psychiatric: Reports depression, Denies anxiety Endocrine: Reports weight change, Denies fatigue Past Medical History Past Medical History: COPD, Hyperlipidemia, Hypertension, Osteoarthritis (OA), Pneumonia, Syncope Additional Past Medical History / Comment(s): iron deficiency anemia, pulmonary fibrosis, diverticulosis History of Any Multi-Drug Resistant Organisms: None Reported Past Surgical History: Back Surgery, Tonsillectomy, Tubal Ligation Past Psychological History: Anxiety, Depression Smoking Status: Current every day smoker Past Alcohol Use History: Occasional Past Drug Use History: Marijuana Medications and Allergies Home Medications Medication Instructions Recorded Confirmed Type Escitalopram Oxalate [Lexapro] 10 mg PO DAILY@79910/31/22 10/31/22 History Ibuprofen [Motrin] 800 mg PO Q8H PRN 10/31/22 10/31/22 History Nicotine 14Mg/24Hr Patch [Habitrol] 1 patch TRANSDERM DAILY@79910/31/22 10/31/22 History QUEtiapine [SEROquel] 25 mg PO HS@199910/31/22 10/31/22 History Losartan [Cozaar] 50 mg PO HS #0 tab 11/01/22 Rx Allergies Allergy/AdvReac Type Severity Reaction Status Date / Time Fish Containing Products Allergy Swelling Verified 10/31/22 06:34 [Fish] shellfish derived [Shellfish] Allergy Unknown Verified 10/31/22 06:34 Physical Examination - Vital Signs Vital Signs: Vital Signs Temp Pulse Pulse Resp BP BP BP 11/01/22 08:05 11/01/22 06:52 97.4 F L 79 16 122/52 11/01/22 02:27 98.4 F 75 18 119/63 10/31/22 20:00 91 10/31/22 19:18 97.9 F 83 17 125/63 10/31/22 15:00 98 F 91 16 157/80 10/31/22 13:41 98 F 89 20 138/63 Pulse Ox FiO2 11/01/22 08:05 98 21 11/01/22 06:52 98 11/01/22 02:27 96 10/31/22 20:00 10/31/22 19:18 98 10/31/22 15:00 98 10/31/22 13:41 98 Intake and Output 10/31/22 11/01/22 11/01/22 22:59 06:59 14:59 Intake Total 240 Balance 240 Intake: Oral 240 Other: # Voids 2 2 Patient is an elderly female, very pleasant in no acute distress. Patient is alert awake oriented to time place and person. Speech and language functions are normal. Patient can name and repeat very well. No aphasia or dysarthria. Attention, concentration and fund of knowledge is adequate. On cranial nerve examination, pupils are equal, round and reacting to light, visual weir are full on confrontation, with no neglect on double simultaneous stimulation. Extraocular muscles are intact with no nystagmus. Face is symmetric, tongue protrudes to the midline. Palatal elevation and sensation normal, hearing and shoulder shrug normal, facial sensation normal. On muscle strength testing, there is no pronator drift and the strength is normal in arms and legs distally and proximally. Deep tendon reflexes are symmetric 1+ in the upper limbs, trace to 1 in the lower limbs and plantars are downgoing bilaterally. Sensory to touch is equal with no neglect on double simultaneous stimulation. Cerebellar function showed no ataxia for [id number] testing. No dysdiadochokinesia. No ataxia for [id number] testing on either side. Tone and bulk of muscles normal. Gait deferred.. On general examination, there is no carotid bruit heard on either side, no heart murmur, S1-S2 audible. Chest is clear on consultation. Abdomen is soft nontender. No organomegaly, bowel sounds present. Peripheral pulses are present. No edema. Results - Laboratory Findings CBC and BMP: 10/30/22 22:48 10/30/22 22:48 Abnormal Lab Findings: Abnormal Labs 10/30/22 10/30/22 10/30/22 22:48 22:48 22:48 RBC 3.17 L Hgb 9.9 L Hct 27.1 L APTT 19.9 L D-Dimer Chloride 108 H BUN 21 H Glucose 146 H TSH Ur Leukocyte Esterase Urine WBC Urine Bacteria 10/30/22 10/30/22 10/31/22 22:48 23:04 11:06 RBC Hgb Hct APTT D-Dimer 2.93 H Chloride BUN Glucose TSH 0.069 L Ur Leukocyte Esterase Moderate H Urine WBC 14 H Urine Bacteria Rare H Assessment and Plan Assessment: * Syncopal spells, recurrent, perhaps related to stopping alcohol use 3 weeks ago. Rule out arrhythmia. Orthostatics negative. * Tobacco use * Marijuana use Plan: * Orthostatics were checked, and apparently was negative. Patient admits that she does not drink fluid enough. She was recommended to increase fluid intake. * Check EEG to rule out any epileptiform activity. * Cardiology has seen the patient, recommending event monitor for 2 weeks. Agree with event monitoring. * 2-D echo revealed normal left ventricular size and systolic function with mild pulmonary hypertension. EF is 55-60%. Left atrial size is normal. * Patient states she does not drive. She was recommended no climbing ladders, operating dangerous machinery or swimming. * Recommend abstain from alcohol use and recommended tobacco cessation. * Thank you for the consult. Addendum: EEG was normal. No epileptiform activity seen. Clear for discharge.
[2022-11-01 14:51] VITALS: BP 155/62; PULSE 93; TEMP 97.8
--- NOTE | 2022-11-01 20:39 | EEG ---
ELECTROENCEPHALOGRAM REPORT PREAMBLE: This is an 82-year-old female with recurrent syncopal spells. EEG FINDINGS: This is a 21-channel digital EEG recorded with video component, utilizing 10/20 international system with referential and bipolar montages. Background consists of well developed, well regulated moderate voltage activity in 9 hertz alpha. Background is posterior dominant and reactive to eye opening and closing. Photic driving response was not seen. Some drowsiness was seen with intermittent bilaterally symmetric theta frequency rhythm. Deeper stages of sleep were not seen. No focal or generalized epileptiform activity was seen. IMPRESSION: This is a normal awake and drowsy EEG. No focal, lateralized, or epileptiform activity was seen. MMODL / IJN: [id number] /
[2022-11-02] MEDS ORDERED: LOSARTAN 50 MG TAB PO SCH (21:00)
== END 2022-11-01 17:16 ==
LOC: EC 22:16 → 6NMEDSUR 10-31 00:07
PROVIDERS: ADMIT Family Medicine; ATTEND Family Medicine
DX: R55 Syncope and collapse (principal); E86.0 Dehydration; F17.210 Nicotine dependence, cigarettes, uncomplicated; I10 Essential (primary) hypertension; E78.5 Hyperlipidemia, unspecified; R63.0 Anorexia; F32.A Depression, unspecified; F41.9 Anxiety disorder, unspecified; J42 Unspecified chronic bronchitis; M19.90 Unspecified osteoarthritis, unspecified site; F10.10 Alcohol abuse, uncomplicated; Z87.01 Personal history of pneumonia (recurrent); D50.9 Iron deficiency anemia, unspecified; J84.10 Pulmonary fibrosis, unspecified; Z87.19 Personal history of other diseases of the digestive system; Z98.51 Tubal ligation status; Z98.890 Other specified postprocedural states; Z79.899 Other long term (current) drug therapy; Z91.013 Allergy to seafood
CPT/HCPCS: 96360; 96361 ×2; 99285; 36415; 94760 ×2; 95816; 93005; 93306; 97161; 97166; 85379; 84439; 80053; 84443; 83735; 84484; 85025; 85610; 85730; 81001; 87086; 87636; 71046; 93970; 71275; G0378 ×2; S4990; Q9967

== ENCOUNTER 2023-01-29 04:55 | Emergency (ER) | payer MEDICARE, OTHER ==
--- NOTE | 2023-01-29 04:59 | ED ---
GI Bleed HPI - General Stated complaint: Rectal Bleed Time Seen by Provider: 01/29/23 04:59 Source: RN notes reviewed, old records reviewed Limitations: no limitations - History of Present Illness Initial comments: This is a 82-year-old female to the emergency department today. Patient is presenting today for evaluation of bloody bowel movement. Patient 1 bowel movement today that was all blood prompting her visit to the emergency department. No nausea no vomiting no other complaints patient did have some episodic abdominal pain prior to having bloody bowel movement. MD complaint: blood on toilet paper, blood streaked stool, gross hematochezia -: unknown Radiation: none Quality: painless Consistency: constant Improves with: none Worsens with: none Context: history of GI bleed Associated Symptoms: denies other symptoms - Related Data Home Medications Medication Instructions Recorded Confirmed Escitalopram Oxalate [Lexapro] 10 mg PO DAILY@0800 10/31/22 10/31/22 Ibuprofen [Motrin] 800 mg PO Q8H PRN 10/31/22 10/31/22 Nicotine 14Mg/24Hr Patch [Habitrol] 1 patch TRANSDERM DAILY@0810/31/22 10/31/22 QUEtiapine [SEROquel] 25 mg PO HS@199910/31/22 10/31/22 Previous Rx's Medication Instructions Recorded Losartan [Cozaar] 50 mg PO HS #0 tab 11/01/22 Allergies Allergy/AdvReac Type Severity Reaction Status Date / Time Fish Containing Products Allergy Swelling Verified 10/31/22 06:34 [Fish] shellfish derived [Shellfish] Allergy Unknown Verified 10/31/22 06:34 Review of Systems ROS Statement: Those systems with pertinent positive or pertinent negative responses have been documented in the HPI. ROS Other: All systems not noted in ROS Statement are negative. Past Medical History Past Medical History: COPD, Hyperlipidemia, Hypertension, Osteoarthritis (OA), Pneumonia, Syncope Additional Past Medical History / Comment(s): iron deficiency anemia, pulmonary fibrosis, diverticulosis History of Any Multi-Drug Resistant Organisms: None Reported Past Surgical History: Back Surgery, Tonsillectomy, Tubal Ligation Past Psychological History: Anxiety, Depression Smoking Status: Current every day smoker Past Alcohol Use History: Occasional Past Drug Use History: Marijuana General Exam General appearance: alert, in no apparent distress Head exam: Present: atraumatic, normocephalic, normal inspection Eye exam: Present: normal appearance, PERRL, EOMI. Absent: scleral icterus, conjunctival injection, periorbital swelling ENT exam: Present: normal exam, mucous membranes moist Neck exam: Present: normal inspection. Absent: tenderness, meningismus, lymphadenopathy Respiratory exam: Present: normal lung sounds bilaterally. Absent: respiratory distress, wheezes, rales, rhonchi, stridor Cardiovascular Exam: Present: normal rhythm, tachycardia, normal heart sounds. Absent: systolic murmur, diastolic murmur, rubs, gallop, clicks GI/Abdominal exam: Present: soft, normal bowel sounds. Absent: distended, tenderness, guarding, rebound, rigid Extremities exam: Present: normal inspection, full ROM, normal capillary refill. Absent: tenderness, pedal edema, joint swelling, calf tenderness Back exam: Present: normal inspection Neurological exam: Present: alert, oriented X3, CN II-XII intact Psychiatric exam: Present: normal affect, normal mood Skin exam: Present: warm, dry, intact, normal color. Absent: rash Course Vital Signs 01/29/23 01/29/23 01/29/23 05:00 07:44 07:45 Temperature 98.6 F 97.6 F 97.6 F Pulse Rate 95 107 H 107 H Respiratory 16 18 18 Rate Blood Pressure 155/73 123/69 123/69 O2 Sat by Pulse 98 96 96 Oximetry - Reevaluation(s) Reevaluation #1: 01/29/23 06:28 Medical record is reviewed Reevaluation #2: 01/29/23 06:28 No active bloody bowel movements here in the ER Reevaluation #3: Patient informed results and questions answered Reevaluation #4: 01/29/23 05:19 Was pt. sent in by a medical professional or institution? @ -no Did you speak to anyone other than the patient for history? @ -no Did you review nursing and triage notes? @ -agree Were old charts reviewed? @ -yes Differential Diagnosis? @ -prior EKG interpreted by me (3pts min.)? @ -no X-rays interpreted by me (1pt min.)? @ -no CT interpreted by me (1pt min.)? @ -no U/S interpreted by me (1pt. min.)? @ -no What testing was considered but not performed? (CT, X-rays, U/S, labs)? Why? @ -no What meds were considered but not given? Why? @ -no Did you discuss the management of the patient with other professionals? @ -no Did you reconcile home meds? @ -no Was smoking cessation discussed for >3mins.? @ -no Was critical care preformed (if so, how long)? @ -no Were there social determinants of health that impacted care today? How? (Homelessness, low income, unemployed, alcoholism, drug addiction, transportation, low edu. Level, literacy, decrease access to med. care, [facility]ci, rehab)? @ -no Was there de-escalation of care discussed even if they declined? (Discuss DNR or withdrawal of care, Hospice)? @ -no What co-morbidities impacted this encounter? (DM, HTN, Smoking, COPD, CAD, Cancer, CVA, Hep., AIDS, mental health diagnosis, sleep apnea, morbid obesity)? @ -none Was patient admitted / discharged? @ -82 female to the emergency department with bright red blood per rectum. One bloody bowel movement prior to arrival patient thinks it was all blood, patient's hemoglobin is higher than normal at 9.7. Patient has no blood output here in the ER 5 hours Patient will be discharged Discharge Undiagnosed new problem with uncertain prognosis? @ -no Drug Therapy requiring intensive monitoring for toxicity (Heparin, Nitro, Insulin, Cardizem)? @ -no Were any procedures done? @ -no Diagnosis/symptom? @ -GI bleed, abdominal pain Acute, or Chronic, or Acute on Chronic? @ -acute Uncomplicated (without systemic symptoms) or Complicated (systemic symptoms)? @ -complicated Side effects of treatment? @ -no Exacerbation, Progression, or Severe Exacerbation] @ -no Poses a threat to life or bodily function? @ -yes1 Medical Decision Making - Medical Decision Making 82 female to the emergency department with bright red blood per rectum. One bl oody bowel movement prior to arrival patient thinks it was all blood, patient's hemoglobin is higher than normal at 9.7. Patient has no blood output here in the ER 5 hours Patient will be discharged - Lab Data Result diagrams: 01/29/23 05:47 01/29/23 05:47 Lab Results 01/29/23 01/29/23 01/29/23 Range/Units 05:47 05:47 05:47 WBC 10.5 (3.8-10.6) k/uL RBC 3.71 L (3.80-5.40) m/uL Hgb 9.6 L (11.4-16.0) gm/dL Hct 30.3 L (34.0-46.0) % MCV 81.6 (80.0-100.0) fL MCH 25.8 (25.0-35.0) pg MCHC 31.6 (31.0-37.0) g/dL RDW 22.8 H (11.5-15.5) % Plt Count 315 (150-450) k/uL MPV 8.5 Neutrophils % 80 % Lymphocytes % 12 % Monocytes % 6 % Eosinophils % 1 % Basophils % 0 % Neutrophils # 8.4 H (1.3-7.7) k/uL Lymphocytes # 1.2 (1.0-4.8) k/uL Monocytes # 0.6 (0-1.0) k/uL Eosinophils # 0.1 (0-0.7) k/uL Basophils # 0.0 (0-0.2) k/uL Hypochromasia Marked Anisocytosis Moderate Microcytosis Slight PT 10.4 (9.0-12.0) sec INR 1.0 (<1.2) APTT 22.7 (22.0-30.0) sec Sodium 136 L (137-145) mmol/L Potassium 4.7 (3.5-5.1) mmol/L Chloride 105 (98-107) mmol/L Carbon Dioxide 25 (22-30) mmol/L Anion Gap 6 mmol/L BUN 18 H (7-17) mg/dL Creatinine 0.82 (0.52-1.04) mg/dL Est GFR (CKD-EPI)AfAm 78 (>60 ml/min/1.73 sqM) Est GFR (CKD-EPI)NonAf 68 (>60 ml/min/1.73 sqM) Glucose 139 H (74-99) mg/dL Calcium 9.0 (8.4-10.2) mg/dL Magnesium 1.7 (1.6-2.3) mg/dL Total Bilirubin 0.3 (0.2-1.3) mg/dL AST 31 (14-36) U/L ALT 33 (4-34) U/L Alkaline Phosphatase 129 H (38-126) U/L Troponin I (0.000-0.034) ng/mL Total Protein 6.9 (6.3-8.2) g/dL Albumin 3.7 (3.5-5.0) g/dL Blood Type Blood Type Confirm Blood Type Recheck Bld Type Recheck Status Antibody Screen Spec Expiration Date 01/29/23 01/29/23 01/29/23 Range/Units 05:47 05:47 06:31 WBC (3.8-10.6) k/uL RBC (3.80-5.40) m/uL Hgb (11.4-16.0) gm/dL Hct (34.0-46.0) % MCV (80.0-100.0) fL MCH (25.0-35.0) pg MCHC (31.0-37.0) g/dL RDW (11.5-15.5) % Plt Count (150-450) k/uL MPV Neutrophils % % Lymphocytes % % Monocytes % % Eosinophils % % Basophils % % Neutrophils # (1.3-7.7) k/uL Lymphocytes # (1.0-4.8) k/uL Monocytes # (0-1.0) k/uL Eosinophils # (0-0.7) k/uL Basophils # (0-0.2) k/uL Hypochromasia Anisocytosis Microcytosis PT (9.0-12.0) sec INR (<1.2) APTT (22.0-30.0) sec Sodium (137-145) mmol/L Potassium (3.5-5.1) mmol/L Chloride (98-107) mmol/L Carbon Dioxide (22-30) mmol/L Anion Gap mmol/L BUN (7-17) mg/dL Creatinine (0.52-1.04) mg/dL Est GFR (CKD-EPI)AfAm (>60 ml/min/1.73 sqM) Est GFR (CKD-EPI)NonAf (>60 ml/min/1.73 sqM) Glucose (74-99) mg/dL Calcium (8.4-10.2) mg/dL Magnesium (1.6-2.3) mg/dL Total Bilirubin (0.2-1.3) mg/dL AST (14-36) U/L ALT (4-34) U/L Alkaline Phosphatase (38-126) U/L Troponin I <0.012 (0.000-0.034) ng/mL Total Protein (6.3-8.2) g/dL Albumin (3.5-5.0) g/dL Blood Type O Positive Blood Type Confirm O Positive Blood Type Recheck No Previous Record Bld Type Recheck Status CABO Indicated Antibody Screen NEGATIVE Spec Expiration Date 02/01/20232346 Disposition Clinical Impression: Lower gastrointestinal hemorrhage, Abdominal pain Disposition: HOME SELF-CARE Condition: Fair Instructions (If sedation given, give patient instructions): Gastrointestinal Bleeding (ED) Is patient prescribed a controlled substance at d/c from ED?: No Referrals: Fernanda Rios DO [Primary Care Provider] - 1-2 days Time of Disposition: 07:00
[2023-01-29] MEDS ORDERED: SODIUM CHLORIDE 0.9% 500 ML 500 ML IV STA (05:10)
[2023-01-29 06:14] LABS: ALT 33 U/L (4-34); AST 31 U/L (14-36); African American GFR (CKD) 78 (>60 ml/min/1.73 sqM); Albumin 3.7 g/dL (3.5-5.0); Alkaline Phosphatase 129 U/L (38-126); Anion Gap 6 mmol/L; Blood Urea Nitrogen 18 mg/dL (7-17); Carbon Dioxide 25 mmol/L (22-30); Chloride 105 mmol/L (98-107); Glucose 139 mg/dL (74-99); Magnesium 1.7 mg/dL (1.6-2.3); Non-African American GFR(CKD) 68 (>60 ml/min/1.73 sqM); Potassium 4.7 mmol/L (3.5-5.1); Sodium 136 mmol/L (137-145); Total Bilirubin 0.3 mg/dL (0.2-1.3); Total Protein 6.9 g/dL (6.3-8.2)
[2023-01-29 06:37] LABS: Anisocytosis Moderate; Basophils % (A) 0 %; Eosinophils # (A) 0.1 k/uL (0-0.7); Eosinophils % (A) 1 %; HCT 30.3 % (34.0-46.0); HGB 9.6 gm/dL (11.4-16.0); Hypochromasia Marked; Lymphocytes # (A) 1.2 k/uL (1.0-4.8); Lymphocytes % (A) 12 %; MCH 25.8 pg (25.0-35.0); MCHC 31.6 g/dL (31.0-37.0); MCV 81.6 fL (80.0-100.0); Mean Platelet Volume 8.5; Microcytosis Slight; Monocytes # (A) 0.6 k/uL (0-1.0); Monocytes % (A) 6 %; Neutrophils # (A) 8.4 k/uL (1.3-7.7); Neutrophils % (A) 80 %; Platelet Count 315 k/uL (150-450); RBC 3.71 m/uL (3.80-5.40); RDW 22.8 % (11.5-15.5); WBC 10.5 k/uL (3.8-10.6)
[2023-01-29 07:35] LABS: Partial Thromboplastin Time 22.7 sec (22.0-30.0); Prothrombin Time 10.4 sec (9.0-12.0)
[2023-01-29 07:45] VITALS: BP 123/69; PULSE 107; RESP 18; TEMP 97.6
== END 2023-01-29 08:14 | disposition home or self-care (01) ==
LOC: EC 04:55
DX: K92.2 Gastrointestinal hemorrhage, unspecified (principal); I10 Essential (primary) hypertension; J44.9 Chronic obstructive pulmonary disease, unspecified; M19.90 Unspecified osteoarthritis, unspecified site; F32.A Depression, unspecified; F41.9 Anxiety disorder, unspecified; F17.200 Nicotine dependence, unspecified, uncomplicated; Z91.013 Allergy to seafood; Z79.899 Other long term (current) drug therapy
CPT/HCPCS: 36415; 80053; 83735; 84484; 85025; 85610; 85730; 86850; 86900; 86901; 96360; 96361; 99285